=== PATIENT | male | born 2000 | race Two or more races ===

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

== ENCOUNTER 2021-05-27 05:11 | Emergency (ER) | payer SELFPAY ==
[~2021-05-27] VITALS: Ht 177.8 cm; Wt 77.1 kg
[2021-05-27 07:35] VITALS: BP 134/59
== END 2021-05-27 08:38 | disposition home or self-care (01) ==
LOC: EDUNIT# 05:11 → ER 05:11
DX: S92.342A Displaced fracture of fourth metatarsal bone, left foot, initial encounter for closed fracture (principal); S50.312A Abrasion of left elbow, initial encounter; V49.49XA Driver injured in collision with other motor vehicles in traffic accident, initial encounter; Y93.89 Activity, other specified; Y92.488 Other paved roadways as the place of occurrence of the external cause; Y99.8 Other external cause status
CPT/HCPCS: 29515; 73610